=== PATIENT | male | born 1995 | race Caucasian/White ===

== ENCOUNTER 2025-05-28 09:34 | Outpatient (AMB) | payer OTHER, SELFPAY ==
--- NOTE | 2025-05-28 09:44 | MHC.PC.OV ---
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 Patient is experiencing choking when eating. Allergies Seasonal Allergies Allergy (Verified 05/28/25 10:06) Congestion Tobacco use date assessed: 05/28/25 Dental Screening Dental Screen Date: 05/28/25 Did you have a dental visit in the last 12 months?: Yes Did you have a dental problem in the last 6 months where you did not have access to dental care?: No Was dental information given to patient?: Patient has dentist HPI HPI Comments History of Present Illness Details The patient is a 29 year old male with a past medical history of allergies presenting to establish care. Patient has not seen a primary in ~5 years For the past one year feels that there is extra effort swallowing foods. Ok with liquids. Last time happened with swallowing steak. About 2 weeks ago choked the food up. Patient reports heartburn. Denies reflux. No abnormal weight loss. ROS CONSTITUTIONAL: Denies weight loss, fever and chills. HEENT: Denies changes in vision and hearing. RESPIRATORY: Denies SOB and cough. CV: Denies palpitations and CP GI: Denies abdominal pain, nausea, vomiting and diarrhea. : Denies dysuria and urinary frequency. MSK: Denies new myalgia and joint pain. SKIN: Denies rash and pruritus. NEUROLOGICAL: Denies headache PSYCHIATRIC: Denies recent changes in mood. PHYSICAL EXAM: GENERAL: Alert and oriented x 3. NAD EYES: EOMI. Anicteric. HENT: Moist mucous membranes. Erythema without exudate of the oropharynx. Thyroid wnl LUNGS: Clear to auscultation bilaterally. CARDIOVASCULAR: Regular rate and rhythm. No murmur. No JVD. ABDOMEN: Soft, non-tender +bs EXTREMITIES: No edema. Non-tender. SKIN: No rashes or lesions. Warm. NEUROLOGIC: No focal neurological deficits. CN II-XII grossly intact PSYCHIATRIC: Cooperative. Appropriate mood and affect [facility] Medical History History of shingles Family History Father Asthma Brother Asthma Social History Housing: House Alcohol intake: current Patient Tobacco Use Status: Never used Tobacco e-Cigarette/Vaping Use: Never Used Second Hand Smoke Exposure: No service: No Current occupational status: employed Current occupation: [employer] Current occupational exposures/hazards: Yes Cognitive needs: No Hearing needs: No Vision needs: No Questionnaire PHQ-9 Over the last 2 weeks, how often have you been bothered by any of the following problems? 1. Little interest or pleasure in doing things: not at all 2. Feeling down, depressed, or hopeless: not at all 3. Trouble falling or staying asleep, or sleeping too much: not at all 4. Feeling tired or having little energy: not at all 5. Poor appetite or overeating: not at all 6. Feeling bad about yourself - or that you are a failure or have let yourself or your family down: not at all 7. Trouble concentrating on things, such as reading the newspaper or watching television: not at all 8. Moving or speaking so slowly that other people could have noticed. Or the opposite - being so fidgety or restless that you have been moving around a lot more than usual: not at all 9. Thoughts that you would be better off or of hurting yourself in some way: not at all Total score: 0 Depression Screening Interpretation: Negative Depression Screening Done: Yes 06008 - PHQ-9 Billing: Yes Source: Developed by Drs. Aubrey Umaña, Lisa Estrada, Giorgi Law and colleagues, with an educational blanche from [employer]. Thrive Questionnaire Date Thrive assessed: 05/28/25 I am a: Patient What is your living situation today?: I have a steady place to live Within the past 12 months, did the food you bought not last and you didn't have the money to get more?: Never true Within the past 12 months, did you worry whether your food would run out before you got money to buy more?: Never true Do you have trouble paying for medicines?: No Do you have trouble getting transportation to medical appointments?: No Do you have trouble paying your heating and electricity bill?: No Do you have trouble taking care of your child, family member or friend?: No Do you have trouble with day-to-day activities such as bathing, preparing meals, shopping, managing finances, etc.?: No Are you currently unemployed and looking for a job?: No Are you interested in more education?: Yes Please select the resources that you would like help with: None Currently or been in a relationship where the following occur: No concerns reported THRIVE Score: 0 AUDIT C Alcohol Use Questionnaire (AUDIT-C) 1. How often do you have a drink containing alcohol?: 2-4 times a month 2. How many drinks containing alcohol do you have on a typical day when you are drinking?: 3 or 4 3. How often do you have six or more drinks on one occasion?: Never Total Score: 3 RAFFY-7 AMB Questionnaire RAFFY-7 Date RAFFY - 7 assessed: 05/28/25 Feeling nervous, anxious, or on edge: 0 = Not at all Not being able to stop or control worryin = Not at all Worrying too much about different things: 0 = Not at all Trouble relaxin = Not at all Being so restless that it is hard to sit still: 0 = Not at all Becoming easily annoyed or irritable: 0 = Not at all Feeling afraid as if something awful might happen: 0 = Not at all Total RAFFY-7 score (0-4 normal; 5-9 mild; 10-14 moderate; 15-21 severe): 0 Source: Developed by Drs. Aubrey Umaña, Lisa Estrada, Giorgi Law and colleagues, with an educational blanche from [employer]. RAFFY-7 Assessment Billing RAFFY-7 Assessment Tool: RAFFY-7 Assessment 28381 Physical exam (Primary Care) Vital Signs: Last Vital Signs Temp 97.9 F 05/28/25 10:09 Pulse 55 05/28/25 10:09 Resp 14 05/28/25 10:09 BP 100/68 05/28/25 10:09 Pulse Ox 96 05/28/25 10:09 Oxygen Delivery Method Room Air 05/28/25 10:09 BMI result Body Mass Index 26.2 Tobacco/Smoking Status: Tobacco use Status Tobacco use date assessed 05/28/25 05/28/25 10:12 Patient Tobacco Use Status Never used Tobacco 05/28/25 10:12 e-Cigarette/Vaping Use Never Used 05/28/25 10:12 PHQ-9: PHQ-9 Score PHQ-9: Total score 0 05/28/25 10:15 Depression Screening Interpretation: Negative Thrive Assessment: Date of Thrive Assessment Date Thrive assessed 05/28/25 05/28/25 09:45 Currently or been in a relationship where the following occur: No concerns reported Coding Level of Care Code New Pt Level 4 (25809) Complex EM visit Add On G2211 Diagnoses Establishing care with new doctor, encounter for Z76.89 Dysphagia, unspecified type R13.10 Dysphagia type: unspecified Additional Codes RAFFY-7 Assessment Billing - RAFFY-7 Assessment Tool: RAFFY-7 Assessment 22389 ([id number]) PHQ-9 - 89079 - PHQ-9 Billing: Yes ([id number]) Assessment & Plan Assessment & Plan (1) Establishing care with new doctor, encounter for: Code(s): Z76.89 - Persons encountering health services in other specified circumstances (2) Dysphagia: Code(s): R13.10 - Dysphagia, unspecified Category: Medical Qualifiers: Dysphagia type: unspecified Qualified Code(s): R13.10 - Dysphagia, unspecified Plan 29 year old to establish care Past medical surgical social reviewed dyphagia, choking on solids-barium swallow ordered Start PPI x 30 days. GI referral Labs ordered Orders: Orders Complete Blood Count Auto Diff Today R12 - Heartburn, R13.10 - Dysphagia, unspecified, Z13.0 - Encounter for screening for diseases of the blood and blood-forming organs and certain disorders involving the immune mechanism, Z13.220 - Encounter for screening for lipoid disorders, Z13.228 - Encounter for screening for other metabolic disorders LISA Reflex Titer and Pattern Today R12 - Heartburn, R13.10 - Dysphagia, unspecified, Z13.0 - Encounter for screening for diseases of the blood and blood-forming organs and certain disorders involving the immune mechanism, Z13.220 - Encounter for screening for lipoid disorders, Z13.228 - Encounter for screening for other metabolic disorders Lipid Panel Today R12 - Heartburn, R13.10 - Dysphagia, unspecified, Z13.0 - Encounter for screening for diseases of the blood and blood-forming organs and certain disorders involving the immune mechanism, Z13.220 - Encounter for screening for lipoid disorders, Z13.228 - Encounter for screening for other metabolic disorders [place] barium swallow Today R12 - Heartburn, R13.10 - Dysphagia, unspecified, Z13.0 - Encounter for screening for diseases of the blood and blood-forming organs and certain disorders involving the immune mechanism, Z13.220 - Encounter for screening for lipoid disorders, Z13.228 - Encounter for screening for other metabolic disorders Comprehensive Met. Panel Today R12 - Heartburn, R13.10 - Dysphagia, unspecified, Z13.0 - Encounter for screening for diseases of the blood and blood-forming organs and certain disorders involving the immune mechanism, Z13.220 - Encounter for screening for lipoid disorders, Z13.228 - Encounter for screening for other metabolic disorders Referrals Gastroenterology Referral R12 - Heartburn, R13.10 - Dysphagia, unspecified, T17.320A - Food in larynx causing asphyxiation, initial encounter, W44.F3XA - Food entering into or through a natural orifice, initial encounter Medications: New omeprazole 40 mg PO DAILY 90 caps 0RF
[2025-05-28 10:09] VITALS: BP 100/68; PULSE 55; RESP 14; TEMP 36.6; O2SAT 96; BMI 26.2
== END 2025-05-28 10:30 | disposition home or self-care (01) ==
LOC: HO.HMCFM 09:35
PROVIDERS: PCP Internal Medicine; Visit Provider Internal Medicine
DX: Z76.89 Persons encountering health services in other specified circumstances (principal); R13.10 Dysphagia, unspecified

== ENCOUNTER → 2025-05-28 09:34 | Outpatient (BNVA) | payer OTHER, SELFPAY | PROVIDERS: PCP Internal Medicine; Visit Provider Internal Medicine | DX: Z76.89 Persons encountering health services in other specified circumstances (principal); R13.10 Dysphagia, unspecified; Z13.31 Encounter for screening for depression; Z13.39 Encounter for screening examination for other mental health and behavioral disorders | CPT/HCPCS: 96127 ==